=== PATIENT | male | born 1950 | race Caucasian/White ===

== ENCOUNTER → 2024-02-21 14:43 | Outpatient (BNVA) | payer MEDICARE, SELFPAY | PROVIDERS: Visit Provider Nurse Practitioner Family | DX: L57.8 Other skin changes due to chronic exposure to nonionizing radiation (principal); L57.0 Actinic keratosis; L81.4 Other melanin hyperpigmentation; L82.0 Inflamed seborrheic keratosis; D22.39 Melanocytic nevi of other parts of face | CPT/HCPCS: 17000; 17110; 99203 ==

== ENCOUNTER → 2024-08-21 09:14 | Outpatient (BNVA) | payer MEDICARE, SELFPAY | PROVIDERS: Visit Provider Nurse Practitioner Family | DX: L57.8 Other skin changes due to chronic exposure to nonionizing radiation (principal); L81.4 Other melanin hyperpigmentation; D22.39 Melanocytic nevi of other parts of face; S50.862A Insect bite (nonvenomous) of left forearm, initial encounter; X58.XXXA Exposure to other specified factors, initial encounter; L57.0 Actinic keratosis | CPT/HCPCS: 10120; 17000; 99213 ==